=== PATIENT | male | born 1930 | race Caucasian/White ===

== ENCOUNTER 2017-01-08 09:36 | Day surgery (SDC) | payer MEDICARE, OTHER ==
[~2017-01-08 09:36] MED LIST: LACTATED RINGERS 1,000 ML IV SCH
[2017-01-08] MEDS ORDERED: LACTATED RINGERS 1,000 ML ONE (09:46)
[2017-01-08] MEDS ORDERED: IV START KIT ONE (09:46)
[2017-01-08] MEDS ORDERED: PROPOFOL 40 ML IV ONE (11:13)
[2017-01-08] MEDS ORDERED: FENTANYL 100 MCG/2 ML VIAL ONE (11:14)
[2017-01-08 16:08] LABS: HELICOBACTER PYLORII DETECTION NEGATIVE (NEGATIVE)
--- NOTE | 2017-01-10 11:30 | SURGPATH ---
[facility] [address] [place] [id number] Patient Name: DAYAMI MUÑOZ MR#: [id number] : 1930 Gender: M Specimen #: [id number] Collected: 01/08/2017 Received: 01/09/2017 Reported: 01/10/2017 Submitting Phys: SADE DUBOIS Copy To Phys: [facility] Clinical History / Pre-Operative Diagnosis: NAUSEA AND ABDOMINAL PAIN; STATUS POST COLON CA AND COLON POLYPS; RULE OUT GIARDIA, CELIAC DISEASE, GASTRITIS, DONOVAN ESOPHAGITIS Specimen Source / Surgical Procedure Performed: #1-DUODENAL BIOPSY; #2-ANTRAL BIOPSY; #3-ESOPHAGEAL BIOPSIES; #4-DESCENDING COLON POLYP AT 35 CM; #5-PROXIMAL ASCENDING COLON POLYP Interpretation: 1. DUODENUM, BIOPSY: - NO PATHOLOGIC ABNORMALITY 2. ANTRUM, BIOPSY: - CHRONIC, MINIMALLY ACTIVE HELICOBACTER GASTRITIS 3. ESOPHAGUS, BIOPSY: - REFLUX ESOPHAGITIS 4. DESCENDING COLON POLYP, BIOPSY: - TUBULAR ADENOMA 5. PROXIMAL ASCENDING COLON POLYP, BIOPSY: - TUBULAR ADENOMA Electronically Signed Out Avi Madsen M.D. Gross Description: #1 The specimen is received in a formalin filled container labeled with the patient's name and "duodenal biopsy". Two rice biopsies are 0.3 and 0.4 cm. Totally embedded in cassette #1. #2 The specimen is received in a formalin filled container labeled with the patient's name and "antral biopsy". An irregular rice biopsy is 0.5 cm. Totally embedded in cassette #2. #3 The specimen is received in a formalin filled container labeled with the patient's name and "esophageal biopsy". Two kim biopsies are 0.3 and 0.5 cm. Totally embedded in cassette #3. #4 The specimen is received in a formalin filled container labeled with the patient's name and "descending colon polyp at 35 cm". A polypoid rice biopsy is 0.7 x 0.6 x 0.5 cm. Bisected. Totally embedded in cassette #4. #5 The specimen is received in a formalin filled container labeled with the patient's name and "proximal ascending colon polyp". A single polypoid rice biopsy is 0.3 cm. Totally embedded in cassette #5. Alexander Wong PLexisALexis Microscopic Description: 1. Sections show normal duodenal mucosa. 2. Sections show chronic inflammation of the gastric mucosa representing chronic gastritis. There is minimal neutrophilic activity. Helicobacter are present. 3. Sections show reactive squamous epithelium with intraepithelial lymphocytes and eosinophils. 4. Sections show tubular adenoma. 5. Sections show a tubular adenoma. 1: 58725 2: 21356 3: 79997 4: 58394 5: 98231 K29.30 D12.4
--- NOTE | 2017-01-11 11:22 | OP ---
Celestine MUÑOZ [id number] : 1930 DATE OF ADDENDUM: January 11, 2017 ADDENDUM: PLAN: This 86-year-old male patient within the practice of Dr. Arlette Campbell, underwent upper endoscopy and colonoscopy on, January 08, 2017 for complaints of nausea and epigastric distress and a previous history of colon cancer resected. The upper endoscopy demonstrated gastritis. H. pylori was found on antral biopsy. Omeprazole and Biaxin 500 mg twice daily for 10 days have been added to prescriptions of famotidine. Medical follow up will be by Dr. Arlette Campbell. Job [id number] Cc: Arlette Campbell M.D.
== END 2017-01-08 12:47 | disposition home or self-care (01) ==
LOC: SDC 09:36
PROVIDERS: ATTEND Internal Medicine Gastroenterology
PROC: 0DB38ZX Excision of Lower Esophagus, Via Natural or Artificial Opening Endoscopic, Diagnostic (ICD-10-PCS; principal; 2017-01-08)
PROC: 0DB98ZX Excision of Duodenum, Via Natural or Artificial Opening Endoscopic, Diagnostic (ICD-10-PCS; 2017-01-08)
PROC: 0DB68ZX Excision of Stomach, Via Natural or Artificial Opening Endoscopic, Diagnostic (ICD-10-PCS; 2017-01-08)
PROC: 0DBK8ZX Excision of Ascending Colon, Via Natural or Artificial Opening Endoscopic, Diagnostic (ICD-10-PCS; 2017-01-08)
PROC: 0DBM8ZX Excision of Descending Colon, Via Natural or Artificial Opening Endoscopic, Diagnostic (ICD-10-PCS; 2017-01-08)
DX: Z08 Encounter for follow-up examination after completed treatment for malignant neoplasm (principal); D12.2 Benign neoplasm of ascending colon; D12.4 Benign neoplasm of descending colon; K57.30 Diverticulosis of large intestine without perforation or abscess without bleeding; K29.60 Other gastritis without bleeding; B96.81 Helicobacter pylori [H. pylori] as the cause of diseases classified elsewhere; K21.0 Gastro-esophageal reflux disease with esophagitis; K29.80 Duodenitis without bleeding; Z86.010 Personal history of colon polyps; Z87.891 Personal history of nicotine dependence; I10 Essential (primary) hypertension; E11.9 Type 2 diabetes mellitus without complications; F32.9 Major depressive disorder, single episode, unspecified; I99.8 Other disorder of circulatory system; E66.9 Obesity, unspecified; G47.30 Sleep apnea, unspecified; E53.9 Vitamin B deficiency, unspecified; Z88.2 Allergy status to sulfonamides; Z88.1 Allergy status to other antibiotic agents
CPT/HCPCS: 43239; 45385; 87081; 93005; J3010; J7120